=== PATIENT | female | born 1930 | race Caucasian/White ===

== ENCOUNTER 2016-05-05 19:56 | Observation (INO) | payer OTHER, BC ==
[~2016-05-05] VITALS: Ht 165.1 cm; Wt 64.5 kg
[~2016-05-05 19:56] MED LIST: ASPIRIN E.C.81 M1 PO; ASPIRIN81 M1 PO; Flagyl PO; Maalox, Mylanta PO; NORVASC10 MG PO; NORVASC2.5 MG PO; PREDNISONE20 M1 PO; TOPROL XL50 MG PO; Tylenol Regular Stre PO; ZANTAC150 MG PO; [UNRECOGNIZED DRUG - OTHER] PO
[2016-05-05 20:27] LABS: POINT-OF-CARE METER ID UU13113702; POINT-OF-CARE USER ID NUTMMM10
[2016-05-05] MEDS ORDERED: HYDROCHLOROTH12.5 M3 PO (20:47)
[2016-05-05] MEDS ORDERED: LOW DOSE ASPIRI81 M1 PO (20:47)
[2016-05-05] MEDS ORDERED: VITAMIN D31000 UNIT PO (20:48)
[2016-05-05] MEDS ORDERED: NORVASC5 MG PO (20:48)
[2016-05-05 20:49] LABS: BASOPHIL COUNT 0.1 K/uL (0-0.1); EOSINOPHIL (%) 3.9 % (0-5); EOSINOPHIL COUNT 0.3 K/uL (0-0.3); HEMATOCRIT 40.6 % (36.0-46.0); IMMATURE GRANULOCYTE (%) 0.3 % (0.0-0.7); IMMATURE GRANULOCYTE COUNT 0.2 K/uL; LYMPHOCYTE COUNT 1.4 K/uL (1.0-2.8); MCH 29.2 PG (29.0-34.0); MCHC 33.3 G/DL (30.0-36.0); MCV 87.7 FL (83-99); MEAN PLAT.VOLUME 10.6 uM^3 (9.5-12.4); MONOCYTE (%) 13.1 % (3-12); MONOCYTE COUNT 0.9 K/uL (0-0.8); NEUTROPHIL (%) 62.4 % (45-76); NEUTROPHIL COUNT 4.5 K/uL (1.8-6.4); PLATELET COUNT 242 K/uL (156-360); RBC DIS.WIDTH-CV 15.2 % (11.8-14.6); RBC DIS.WIDTH-SD 48.3 % (39-53); RED BLOOD COUNT 4.63 M/uL (3.80-5.20); WHITE BLOOD COUNT 7.2 K/uL (4.1-10.2)
[2016-05-05 20:58] LABS: CHLORIDE 106 mEq/L (99-109); POTASSIUM 3.8 mEq/L (3.7-5.4); SODIUM 141 mEq/L (136-147)
[2016-05-05 21:00] LABS: GLUCOSE 130 mg/dL (70-99)
[2016-05-05 21:01] LABS: ANION GAP 12 MEQ/L (2-14)
[2016-05-05 21:02] LABS: TOTAL BILIRUBIN 1.1 mg/dL (0.0-1.0)
[2016-05-05 21:04] LABS: ALKALINE PHOSPHATASE 40 IU/L (3-129); GFR ESTIMATE (CALCULATED) 38 mL/min/
[2016-05-05 21:05] LABS: UREA NITROGEN (BUN) 29 mg/dL (9-23)
[2016-05-05 21:11] LABS: TROP-I INTERPRETATION NEGATIVE; TROPONIN-I < 0.01 ng/mL (0.0-0.30)
[2016-05-06 07:54] LABS: ANION GAP 10 MEQ/L (2-14); CHLORIDE 104 MEQ/L (99-109); POTASSIUM 3.6 MEQ/L (3.7-5.4); SAMPLE HEMOLYSIS CHECK 0; SAMPLE ICTERIC CHECK 0; SAMPLE LIPEMIA CHECK 0; SODIUM 139 MEQ/L (136-147)
[2016-05-06 07:59] LABS: GFR ESTIMATE (CALCULATED) 56 mL/min/; GLUCOSE 108 mg/dL (70-99); UREA NITROGEN (BUN) 26 mg/dL (9-23)
[2016-05-06 14:00] VITALS: BP 140/64
== END 2016-05-06 11:12 | disposition home or self-care (01) ==
LOC: EME 19:56 → EDOF 23:08
PROVIDERS: Emergency Medicine; Family Medicine
DX: R55 Syncope and collapse (principal); R53.1 Weakness; J06.9 Acute upper respiratory infection, unspecified; R05 Cough; I10 Essential (primary) hypertension; M19.90 Unspecified osteoarthritis, unspecified site; Z91.041 Radiographic dye allergy status
CPT/HCPCS: 70450; 71010; 80048; 80053; 82948; 84484; 85025; 93005; 93880; 99281; 99285; G0378

== ENCOUNTER 2017-04-16 02:48 | Inpatient (IN) | payer OTHER, BC ==
[~2017-04-16] VITALS: Ht 160 cm; Wt 62.8 kg
[2017-04-16] VITALS (21 sets, daily range): BP systolic 105–179; BP diastolic 56–94
[~2017-04-16 02:48] MED LIST changes: +HYDROCHLOROTH12.5 M3 PO; +LOW DOSE ASPIRI81 M1 PO; +NORVASC5 MG PO; +VITAMIN D31000 UNIT PO
[2017-04-16 03:05] LABS: BASOPHIL COUNT 0.2 K/uL (0-0.1); EOSINOPHIL (%) 8.4 % (0-5); EOSINOPHIL COUNT 0.7 K/uL (0-0.3); HEMATOCRIT 38.9 % (36.0-46.0); IMMATURE GRANULOCYTE (%) 0.3 % (0.0-0.7); INSTRUMENT ABS NEUTROPHIL CT 2.6 K/uL; LYMPHOCYTE COUNT 3.3 K/uL (1.0-2.8); MCH 28.7 PG (29.0-34.0); MCHC 32.4 G/DL (30.0-36.0); MCV 88.6 FL (83-99); MEAN PLAT.VOLUME 10.8 uM^3 (9.5-12.4); MONOCYTE (%) 14.2 % (3-12); MONOCYTE COUNT 1.1 K/uL (0-0.8); NEUTROPHIL COUNT 2.6 K/uL (1.8-6.4); PLATELET COUNT 236 K/uL (156-360); RBC DIS.WIDTH-CV 14.6 % (11.8-14.6); RBC DIS.WIDTH-SD 47.2 % (39-53); RED BLOOD COUNT 4.39 M/uL (3.80-5.20); WHITE BLOOD COUNT 7.9 K/uL (4.1-10.2)
[2017-04-16 03:13] LABS: PROTHROMBIN TIME 11.4 SEC (10.2-12.9)
[2017-04-16 03:15] LABS: AMYLASE 120 IU/L (1-118); CHLORIDE 106 mEq/L (99-109); POTASSIUM 3.4 mEq/L (3.7-5.4); PTT 26.7 SEC (25-37); SODIUM 140 mEq/L (136-147)
[2017-04-16 03:17] LABS: GLUCOSE 159 mg/dL (70-99)
[2017-04-16 03:18] LABS: ANION GAP 11 MEQ/L (2-14)
[2017-04-16 03:20] LABS: SERUM ETHYL ALCOHOL < 10 mg/dL
[2017-04-16 03:21] LABS: GFR ESTIMATE (CALCULATED) 38 mL/min/
[2017-04-16 03:22] LABS: UREA NITROGEN (BUN) 28 mg/dL (9-23)
[2017-04-16 03:24] LABS: LIPASE 51 U/L (1.0-51.0)
[2017-04-16 03:30] LABS: TROP-I INTERPRETATION POSITIVE
[2017-04-16 03:35] LABS: TROPONIN-I 0.66 ng/mL (0.0-0.30)
[2017-04-16 06:57] LABS: METH RESISTANT S AUREUS PCR NEGATIVE (NEGATIVE); PROBE CHECK PASS; SPECIMEN PROCESSING CONTROL PASS
[2017-04-16 12:18] LABS: ANION GAP 6 MEQ/L (2-14); CHLORIDE 105 MEQ/L (99-109); GFR ESTIMATE (CALCULATED) 50 mL/min/; GLUCOSE 113 mg/dL (70-99); POTASSIUM 4.6 MEQ/L (3.7-5.4); SAMPLE HEMOLYSIS CHECK 0; SAMPLE ICTERIC CHECK 0; SAMPLE LIPEMIA CHECK 0; SODIUM 137 MEQ/L (136-147); UREA NITROGEN (BUN) 24 mg/dL (9-23)
[2017-04-16] MEDS ORDERED: HYDROCHLOROTHIA25 MG PO (14:40)
[2017-04-16 19:46] LABS: TROP-I INTERPRETATION POSITIVE; TROPONIN-I 16.53 ng/mL (0.0-0.30)
[2017-04-16 19:50] LABS: CREATINE KINASE 240 IU/L (1-294); TOTAL CK 240 IU/L (1-294)
[2017-04-16 20:18] LABS: CK-MB 35.9 ng/mL (0.0-4.9)
[2017-04-17] VITALS (16 sets, daily range): BP systolic 106–146; BP diastolic 48–78
[2017-04-17 04:49] LABS: BASOPHIL COUNT 0.1 K/uL (0-0.1); EOSINOPHIL (%) 5.2 % (0-5); EOSINOPHIL COUNT 0.4 K/uL (0-0.3); HEMATOCRIT 35.1 % (36.0-46.0); IMMATURE GRANULOCYTE (%) 0.3 % (0.0-0.7); INSTRUMENT ABS NEUTROPHIL CT 4.7 K/uL; LYMPHOCYTE COUNT 1.2 K/uL (1.0-2.8); MCHC 32.8 G/DL (30.0-36.0); MCV 88.6 FL (83-99); MONOCYTE (%) 15.1 % (3-12); MONOCYTE COUNT 1.1 K/uL (0-0.8); NEUTROPHIL (%) 62.5 % (45-76); NEUTROPHIL COUNT 4.7 K/uL (1.8-6.4); PLATELET COUNT 197 K/uL (156-360); RBC DIS.WIDTH-CV 14.8 % (11.8-14.6); RBC DIS.WIDTH-SD 48.3 % (39-53); RED BLOOD COUNT 3.96 M/uL (3.80-5.20); WHITE BLOOD COUNT 7.5 K/uL (4.1-10.2)
[2017-04-17 05:00] LABS: CHLORIDE 110 mEq/L (99-109); POTASSIUM 4.1 mEq/L (3.7-5.4); SODIUM 140 mEq/L (136-147)
[2017-04-17 05:02] LABS: GLUCOSE 100 mg/dL (70-99)
[2017-04-17 05:03] LABS: ANION GAP 5 MEQ/L (2-14)
[2017-04-17 05:06] LABS: GFR ESTIMATE (CALCULATED) 45 mL/min/
[2017-04-17 05:07] LABS: UREA NITROGEN (BUN) 25 mg/dL (9-23)
[2017-04-17 05:08] LABS: CREATINE KINASE 194 IU/L (1-294); TOTAL CK 194 IU/L (1-294)
[2017-04-17 05:10] LABS: TROP-I INTERPRETATION POSITIVE
[2017-04-17 07:15] LABS: Estimated Average Glucose 117 mg/dL (70-123); HEMOGLOBIN A1c (GLYCOHEMOGLOB) 5.7 % HGB (Below 5.7)
[2017-04-17 19:28] LABS: CK-MB 9.5 ng/mL (0.0-4.9); TROPONIN-I 7.19 ng/mL (0.0-0.30)
[2017-04-17 19:29] LABS: TROP-I INTERPRETATION POSITIVE
[2017-04-17 19:43] LABS: CREATINE KINASE 122 IU/L (1-294); TOTAL CK 122 IU/L (1-294)
[2017-04-18] VITALS: BP 110/58
[2017-04-18 04:00] VITALS: BP 131/65
[2017-04-18 08:00] VITALS: BP 122/61
[2017-04-18] MEDS ORDERED: CLOPIDOGREL75 MG PO (10:14)
[2017-04-18] MEDS ORDERED: ASPIR-LOW81 MG PO (10:14)
[2017-04-18] MEDS ORDERED: ATORVASTATIN CA40 MG PO (10:14)
[2017-04-18] MEDS ORDERED: NITROSTAT0.4 MG SL (10:14)
[2017-04-18 11:00] VITALS: BP 129/56
== END 2017-04-18 11:15 | disposition home or self-care (01) | DRG 247 ==
LOC: EME 02:48 → ENRESERV 03:30 → EME 03:42 → CATH 03:42 → 4WEST 05:07 → ENPENDDIS 04-18 → 4WEST 04-18 11:15
PROVIDERS: Emergency Medicine; Internal Medicine Interventional Cardiology
DX: I21.19 ST elevation (STEMI) myocardial infarction involving other coronary artery of inferior wall (principal); Q25.0 Patent ductus arteriosus; E87.6 Hypokalemia; I25.10 Atherosclerotic heart disease of native coronary artery without angina pectoris; I10 Essential (primary) hypertension; R73.03 Prediabetes; I95.9 Hypotension, unspecified; I34.0 Nonrheumatic mitral (valve) insufficiency
CPT/HCPCS: 71010; 80048; 80048 91; 80061; 81003; 82150; 82550; 82550 91; 82553; 83036; 83690; 84484; 85025; 85347; 85610; 85730; 86850; 86900; 86901; 87641; 93005; 94799; 99281; 99285; C1725; C1757; C1760; C1769; C1874; C1887; C1894; G0480; J0153; J0461; J1644; J2250; J2270; J3010; J3246

== ENCOUNTER 2017-07-26 20:17 | Emergency (ER) | payer OTHER ==
[~2017-07-26] VITALS: Ht 160 cm; Wt 62.1 kg
[~2017-07-26 20:17] MED LIST changes: +ASPIR-LOW81 MG PO; +ATORVASTATIN CA40 MG PO; +CLOPIDOGREL75 MG PO; +HYDROCHLOROTHIA25 MG PO; +NITROSTAT0.4 MG SL
[2017-07-26 21:10] LABS: HEMATOCRIT 41.7 % (36.0-46.0); MCH 29.4 PG (29.0-34.0); MCHC 33.6 G/DL (30.0-36.0); MCV 87.4 FL (83-99); PLATELET COUNT 278 K/uL (156-360); RBC DIS.WIDTH-CV 15.8 % (11.8-14.6); RBC DIS.WIDTH-SD 50.4 % (39-53); RED BLOOD COUNT 4.77 M/uL (3.80-5.20); WHITE BLOOD COUNT 8.7 K/uL (4.1-10.2)
[2017-07-26 21:25] LABS: CHLORIDE 104 mEq/L (99-109); POTASSIUM 3.8 mEq/L (3.7-5.4); SODIUM 142 mEq/L (136-147)
[2017-07-26 21:26] LABS: GLUCOSE 172 mg/dL (70-99)
[2017-07-26 21:30] LABS: CREATININE 1.5 mg/dL (0.6-1.3); GFR ESTIMATE (CALCULATED) 35 mL/min/
[2017-07-26 21:31] LABS: UREA NITROGEN (BUN) 33 mg/dL (9-23)
[2017-07-26 23:43] VITALS: BP 148/80
== END 2017-07-26 23:44 | disposition home or self-care (01) ==
LOC: EME 20:17
PROVIDERS: Physician Assistant
DX: S00.03XA Contusion of scalp, initial encounter (principal); S30.0XXA Contusion of lower back and pelvis, initial encounter; W18.39XA Other fall on same level, initial encounter; Y93.89 Activity, other specified; I10 Essential (primary) hypertension; R73.03 Prediabetes; G43.909 Migraine, unspecified, not intractable, without status migrainosus; Z79.02 Long term (current) use of antithrombotics/antiplatelets; Z85.9 Personal history of malignant neoplasm, unspecified; Z91.041 Radiographic dye allergy status
CPT/HCPCS: 70450; 72170; 72220; 80048; 85027; 85610; 99281; 99284

== ENCOUNTER 2017-08-21 05:30 | Emergency (ER) | payer OTHER ==
[~2017-08-21] VITALS: Ht 160 cm; Wt 61.5 kg
[2017-08-21 07:23] LABS: HEMATOCRIT 35.7 % (36.0-46.0); MCH 29.2 PG (29.0-34.0); MCHC 33.6 G/DL (30.0-36.0); MCV 86.9 FL (83-99); PLATELET COUNT 208 K/uL (156-360); RBC DIS.WIDTH-CV 15.9 % (11.8-14.6); RBC DIS.WIDTH-SD 50.6 % (39-53); RED BLOOD COUNT 4.11 M/uL (3.80-5.20); WHITE BLOOD COUNT 7.6 K/uL (4.1-10.2)
[2017-08-21 07:41] LABS: TROP-I INTERPRETATION NEGATIVE; TROPONIN-I 0.02 ng/mL (0.0-0.30)
[2017-08-21 07:42] LABS: CHLORIDE 104 MEQ/L (99-109); CREATININE 1.3 MG/DL (0.6-1.3); GFR ESTIMATE (CALCULATED) 41 mL/min/; GLUCOSE 141 mg/dL (70-99); POTASSIUM 3.8 MEQ/L (3.7-5.4); SODIUM 138 MEQ/L (136-147); UREA NITROGEN (BUN) 30 mg/dL (9-23)
[2017-08-21 09:33] LABS: APPEARANCE CLEAR ((CLEAR)); BILIRUBIN NEGATIVE; BLOOD SMALL; COLOR YELLOW ((YELLOW)); GLUCOSE (STRIP) NEGATIVE; KETONES NEGATIVE; LEUKOCYTES NEGATIVE; NITRITE NEGATIVE; PROTEIN (STRIP) NEGATIVE; SPECIFIC GRAVITY 1.012 (1.000-1.030); UROBILINOGEN 0.2 MG/DL (0.2-1.0)
[2017-08-21 09:36] LABS: BACTERIA NONE SEEN /HPF; EPITHELIAL CELLS RARE /HPF; HYALINE CASTS 0-5 /LPF; MUCUS NONE SEEN /LPF; RED BLOOD CELLS 0-5 /HPF (0-5); UCUL ADDED? NO; WHITE BLOOD CELLS 0-5 /HPF (0-5)
[2017-08-21] MEDS ORDERED: TRAMADOL HCL50 MG PO (10:50)
[2017-08-21 12:14] VITALS: BP 138/69
== END 2017-08-21 12:14 | disposition home or self-care (01) ==
LOC: EME 05:30
PROVIDERS: Physician Assistant
PROC: 2W38X1Z Immobilization of Right Upper Extremity using Splint (ICD-10-PCS; principal; 2017-08-21)
DX: S70.01XA Contusion of right hip, initial encounter (principal); S52.041A Displaced fracture of coronoid process of right ulna, initial encounter for closed fracture; W18.30XA Fall on same level, unspecified, initial encounter; I10 Essential (primary) hypertension; R73.03 Prediabetes; I25.10 Atherosclerotic heart disease of native coronary artery without angina pectoris; I25.2 Old myocardial infarction; Z79.02 Long term (current) use of antithrombotics/antiplatelets; Z79.82 Long term (current) use of aspirin
CPT/HCPCS: 70450; 71046; 72125; 72192; 73020; 73080; 73502; 73564; 80048; 81003; 84484; 85027; 93005; 99281; 99285

== ENCOUNTER 2017-08-31 14:06 | Inpatient (IN) | payer OTHER ==
[~2017-08-31] VITALS: Ht 160 cm; Wt 59.7 kg
[~2017-08-31 14:06] MED LIST changes: +TRAMADOL HCL50 MG PO
[2017-08-31 16:22] LABS: BASOPHIL (%) 2.1 % (0-1); BASOPHIL COUNT 0.1 K/uL (0-0.1); EOSINOPHIL (%) 5.2 % (0-5); EOSINOPHIL COUNT 0.4 K/uL (0-0.3); HEMATOCRIT 38.6 % (36.0-46.0); HEMOGLOBIN 12.8 G/DL (11.9-15.5); IMMATURE GRANULOCYTE (%) 0.1 % (0.0-0.7); LYMPHOCYTE (%) 12.2 % (15-42); LYMPHOCYTE COUNT 0.8 K/uL (1.0-2.8); MCH 28.9 PG (29.0-34.0); MCHC 33.2 G/DL (30.0-36.0); MCV 87.1 FL (83-99); MONOCYTE (%) 15.2 % (3-12); NEUTROPHIL (%) 65.2 % (45-76); NEUTROPHIL COUNT 4.4 K/uL (1.8-6.4); PLATELET COUNT 323 K/uL (156-360); RBC DIS.WIDTH-CV 15.4 % (11.8-14.6); RBC DIS.WIDTH-SD 49.5 % (39-53); RED BLOOD COUNT 4.43 M/uL (3.80-5.20); WHITE BLOOD COUNT 6.8 K/uL (4.1-10.2)
[2017-08-31 16:25] VITALS: BP 157/72
[2017-08-31 16:39] LABS: ALKALINE PHOSPHATASE 62 IU/L (3-129); ALT (GPT) 15 IU/L (3-49); AST (GOT) 23 IU/L (2-34); CHLORIDE 105 MEQ/L (99-109); CREATININE 1.5 MG/DL (0.6-1.3); GFR ESTIMATE (CALCULATED) 35 mL/min/; GLUCOSE 122 mg/dL (70-99); POTASSIUM 3.5 MEQ/L (3.7-5.4); SODIUM 140 MEQ/L (136-147); UREA NITROGEN (BUN) 31 mg/dL (9-23)
[2017-08-31 20:00] VITALS: BP 136/64
[2017-08-31 22:33] LABS: APPEARANCE CLEAR ((CLEAR)); BILIRUBIN NEGATIVE; BLOOD NEGATIVE; COLOR YELLOW ((YELLOW)); GLUCOSE (STRIP) NEGATIVE; KETONES NEGATIVE; LEUKOCYTES NEGATIVE; NITRITE NEGATIVE; PROTEIN (STRIP) NEGATIVE; SPECIFIC GRAVITY 1.011 (1.000-1.030)
[2017-09-01] VITALS (7 sets, daily range): BP systolic 128–163; BP diastolic 63–72
[2017-09-01 05:34] LABS: INTER. NORMALIZED RATIO 1.1
[2017-09-02 00:34] VITALS: BP 157/76
[2017-09-02 04:06] VITALS: BP 120/56
[2017-09-02 06:52] LABS: HEMATOCRIT 34.8 % (36.0-46.0); HEMOGLOBIN 11.2 G/DL (11.9-15.5)
[2017-09-02 08:09] VITALS: BP 122/60
[2017-09-02 15:51] VITALS: BP 117/59
[2017-09-02 23:37] VITALS: BP 130/61
[2017-09-03 06:18] LABS: HEMATOCRIT 33.7 % (36.0-46.0); MCV 87.5 FL (83-99)
[2017-09-03 07:42] VITALS: BP 147/68
[2017-09-03 16:02] VITALS: BP 121/58
[2017-09-03 23:36] VITALS: BP 114/56
[2017-09-04 07:32] VITALS: BP 130/63
[2017-09-04] MEDS ORDERED: ENDOCET 5-3251 EACH PO (08:24)
[2017-09-04 15:29] VITALS: BP 134/65
[2017-09-05 00:15] VITALS: BP 130/61
[2017-09-05 07:46] VITALS: BP 134/63
[2017-09-05] MEDS ORDERED: POLYETHYLENE GL17 GM PO (09:33)
[2017-09-05] MEDS ORDERED: SENNA LAX8.6 MG PO (09:33)
[2017-09-05 16:26] VITALS: BP 148/72
== END 2017-09-05 17:55 | DRG 482 ==
LOC: 3EAST 14:06 → ENRESERV 14:06 → 3EAST 14:11 → ENRESERV 14:12 → 3EAST 15:12
PROVIDERS: Orthopaedic Surgery
PROC: 0QS634Z Reposition Right Upper Femur with Internal Fixation Device, Percutaneous Approach (ICD-10-PCS; principal; 2017-09-01)
DX: S72.011A Unspecified intracapsular fracture of right femur, initial encounter for closed fracture (principal); S70.01XA Contusion of right hip, initial encounter; W01.0XXA Fall on same level from slipping, tripping and stumbling without subsequent striking against object, initial encounter; Y92.009 Unspecified place in unspecified non-institutional (private) residence as the place of occurrence of the external cause; E87.6 Hypokalemia; D64.9 Anemia, unspecified; N28.9 Disorder of kidney and ureter, unspecified; K59.00 Constipation, unspecified; I10 Essential (primary) hypertension; I73.9 Peripheral vascular disease, unspecified; I25.10 Atherosclerotic heart disease of native coronary artery without angina pectoris; E78.5 Hyperlipidemia, unspecified; R73.03 Prediabetes; Z95.5 Presence of coronary angioplasty implant and graft; I25.2 Old myocardial infarction; Z79.82 Long term (current) use of aspirin; Z79.02 Long term (current) use of antithrombotics/antiplatelets
CPT/HCPCS: 73502; 76000; 80053; 81003; 85014; 85018; 85025; 85610; 85730; 86850; 86900; 86901; 93005; C1713; J0690; J1100; J2250; J2405; J3010; J7120; S0020